=== PATIENT | female | born 1950 | race Caucasian/White ===

== ENCOUNTER 2020-07-15 16:19 | Emergency (ER) | payer MEDICARE, OTHER, SELFPAY ==
[2020-07-15 16:30] LABS: Glucose Point of Care 115 (65-105)
[2020-07-15 16:35] VITALS: BP 147/68; PULSE 84; RESP 14; TEMP 36.7; O2SAT 99
[2020-07-15 17:21] LABS: Glucose Point of Care 178 (65-105)
--- NOTE | 2020-07-15 17:25 | PC.NURSE ---
Lab stated green top was hemolyzed. EDP aware. Attempting to restick patient for blood and patient is refusing blood draw. ERP aware and is ok.
[2020-07-15 17:48] VITALS: BP 155/60; PULSE 74; RESP 14; O2SAT 99
--- NOTE | 2020-07-15 18:12 | ED.GENADULT ---
HPI - General Adult General Chief complaint: Recheck/Abnormal Lab/Rx Stated complaint: low blood sugar Time Seen by Provider: 07/15/20 16:21 Source: patient Mode of arrival: EMS Limitations: no limitations History of Present Illness HPI narrative: 70-year-old with insulin-dependent diabetic [place] shopping [place] with complaints of hypoglycemic episode. Patient states that she was shopping felt extremely jittery followed by profuse sweating sat down on the floor, EMS was called by the store host upon their arrival patient's blood sugar was 41. She was given D10 and was transferred here to the ER upon arrival patient is wide awake alert with no discomfort. Patient states she ate banana and something else which she does not remember and did take insulin more than normal and was planning on going out to eat. Onset (ago): minute(s) (30) Relieving factors: none Exacerbating factors: none Associated symptoms: denies other symptoms Related Data Allergies Allergy/AdvReac Type Severity Reaction Status Date / Time amoxicillin Allergy Severe Rash Verified 06/10/17 21:44 cefuroxime Allergy Severe Anaphylactic Verified 06/10/17 21:44 Shock ciprofloxacin Allergy Severe Anaphylactic Verified 06/10/17 21:44 Shock levofloxacin Allergy Severe Anaphylactic Verified 06/10/17 21:44 Shock Tetracyclines Allergy Severe Other Verified 06/10/17 21:44 Sulfa (Sulfonamide Allergy Unknown Unknown Verified 06/10/17 21:44 Antibiotics) Review of Systems Review of Systems: All systems reviewed & are unremarkable except as noted in HPI and below Constitutional: Constitutional: Reports no additional constitutional complaints Eyes: Eyes: Reports no additional eye complaints ENT: Reports system reviewed and no additional complaints, except as documented Cardiovascular: Cardiovascular: Reports no additional cardiovascular complaints Respiratory: Respiratory: Reports no additional respiratory complaints Gastrointestinal: Gastrointestinal: Reports no additional gastrointestinal complaints Genitourinary: Genitourinary: Reports no additional female genitourinary complaints Musculoskeletal: Musculoskeletal: Reports no additional musculoskeletal complaints Neurologic: Reports system reviewed and no additional complaints, except as documented Course Course Emergency Course: Patient did not want any blood work done. I have given a sandwich and her blood sugar remained within normal range and she states that she is feeling fine and wants to go home. Vital Signs Vital signs: Vital Signs Temperature 36.7 C 07/15/20 16:35 Pulse Rate 84 07/15/20 16:35 Respiratory Rate 14 07/15/20 16:35 Blood Pressure 147/68 H 07/15/20 16:35 Pulse Oximetry 99 07/15/20 16:35 Temperature 36.7 C 07/15/20 16:35 Pulse Rate 74 07/15/20 17:48 Respiratory Rate 14 07/15/20 17:48 Blood Pressure 155/60 H 07/15/20 17:48 Pulse Oximetry 99 07/15/20 17:48 Medical Decision Making Vital Signs Vital Signs: Vital Signs Temperature 36.7 C 07/15/20 16:35 Pulse Rate 84 07/15/20 16:35 Respiratory Rate 14 07/15/20 16:35 Blood Pressure 147/68 H 07/15/20 16:35 Pulse Oximetry 99 07/15/20 16:35 Temperature 36.7 C 07/15/20 16:35 Pulse Rate 74 07/15/20 17:48 Respiratory Rate 14 07/15/20 17:48 Blood Pressure 155/60 H 07/15/20 17:48 Pulse Oximetry 99 07/15/20 17:48 Lab Data Result diagrams: 07/15/20 16:58 Labs: Lab Results 07/15/20 07/15/20 07/15/20 Range/Units 16:24 16:58 17:17 Sodium Pending Potassium Pending Chloride Pending Carbon Dioxide Pending Anion Gap Pending BUN Pending Creatinine Pending Estim Creat Clear Calc Pending Estimated GFR Pending Glucose Pending POC Capillary Glucose 115 H 178 H (65-105) mg/dl Calcium Pending Total Bilirubin Pending AST Pending ALT Pending Alkaline Gregg
== END 2020-07-15 18:57 | disposition home or self-care (01) ==
PROVIDERS: Emergency Provider Family Medicine; PCP Internal Medicine
DX: E11.649 Type 2 diabetes mellitus with hypoglycemia without coma (principal); Z79.4 Long term (current) use of insulin
CPT/HCPCS: 36415; 82948; 99283